=== PATIENT | female | born 1980 | race Caucasian/White ===

== ENCOUNTER 2019-07-31 23:29 | Emergency (ER) | payer MEDICAID ==
[~2019-07-31] VITALS: Ht 152.4 cm; Wt 93.0 kg
[2019-07-31 23:33] VITALS: Ht 152.4 cm; Wt 93.0 kg
[2019-08-01 00:35] LABS: microscopic required? YES; urine erythrocyte 2+ (NEGATIVE)
[2019-08-01 00:39] LABS: BASOPHIL % 0.3 % (0-2); PLATELET COUNT 228 x10^3mcL (130-400)
[2019-08-01 00:42] LABS: RED CELL DISTRIBUTION WIDTH 18.3 % (11.5-14.5)
[2019-08-01 01:08] LABS: CALCIUM 8.2 mg/dL (8.5-10.1); CARBON DIOXIDE 30.7 mmol/L (21-32); CHLORIDE SERUM 103 mmol/L (98-107); CREATININE SERUM 0.6 mg/dL (0.6-1.0); GFR1 > 60 mL/min; GLUCOSE SERUM 86 mg/dL (74-106); POTASSIUM SERUM 3.6 mmol/L (3.5-5.1); SODIUM SERUM 142 mmol/L (136-145)
[2019-08-01 01:15] LABS: ALBUMIN 3.5 g/dL (3.4-5.0); ALKALINE PHOSPHATASE 93 U/L (46-116); ALT/SGPT 17 U/L (14-59); AST/SGOT 20 U/L (15-37); BILIRUBIN TOTAL 0.09 mg/dL (0.20-1.00); LIPASE 66 IU/L (73-393); TOTAL PROTEIN, SERUM 7.2 g/dL (6.4-8.2)
[2019-08-01 01:31] LABS: AMYLASE 24 U/L (25-115)
[2019-08-01 03:31] VITALS: BP 128/86
== END 2019-08-01 03:31 | disposition home or self-care (01) ==
LOC: ED 23:29
PROVIDERS: Emergency Medicine
DX: N39.0 Urinary tract infection, site not specified (principal); I10 Essential (primary) hypertension; Z90.49 Acquired absence of other specified parts of digestive tract; Z88.0 Allergy status to penicillin; Z88.6 Allergy status to analgesic agent
CPT/HCPCS: J0696; J2270; J2550